=== PATIENT | male | born 1980 | race Two or more races ===

== ENCOUNTER 2024-08-10 15:14 | Outpatient (RCR) | payer MEDICAID, SELFPAY ==
--- NOTE | 2024-08-10 15:28 | PT.OIERPT ---
PT OP Initial Eval Patient Information Outpatient Physical Therapy Treatment Date: 08/10/24 Visit Reasons: LEFT SHOULDER PAIN Medical Diagnosis: M75.02 Treatment Dx #1: L shoulder pain Treatment Dx #2: Decreased L shoulder ROM Start of Care: 08/10/24 Date of Onset: 1 yr ago Smoking Status Smoking Status: Never smoker Initial Assessment Subjective: Pt is 44 yr old mongolian speaking male who reports L shoulder pain since reaching to not fall 1 yr ago. Increased pain with reaching up and it feels weak. He is limited with lifting heavy things, reaching up to the side, he is cautious with most other movements. 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 Pt requires skilled therapy in order to decrease pain and improve ROM and strength and has fair rehab potential. Short Term and Senior Care Goals 1. Ind with HEP ? 2. Improved AROM of L shoulder to at least 145 deg FF, 125 deg abduction and 90 deg ? ER ? 3. Improved HBB ROM to L3 ? 4. Pt will reach OH x10 with <=4/10 pain Treatment Plan ? 1. Manual therapy ? 2. Therex ? 3. Modalities as indicated, moist heat, ice, estim Frequency and Duration: 1-2x a week for 12 visits Certification Dates: 08/10/24 to 11/09/24 Procedure Charges OP PT Eval Mod Complex 30 minutes: Yes
== END 2024-09-07 23:59 | disposition home or self-care (01) ==
LOC: CPTX 15:14
PROVIDERS: PCP Family Medicine; Referring Provider Family Medicine; Visit Provider Family Medicine
DX: M25.512 Pain in left shoulder (principal); M75.02 Adhesive capsulitis of left shoulder
CPT/HCPCS: 97162

== ENCOUNTER 2024-11-09 18:56 | Emergency (ER) | payer MEDICAID, SELFPAY ==
[2024-11-09 19:08] VITALS: BP 172/66; PULSE 74; RESP 20; TEMP 37.1; O2SAT 96
--- NOTE | 2024-11-09 19:44 | EDNOTE_ITS ---
Upper Extremity Injury RME/HPI General Chief Complaint: Skin/Abscess/Foreign Body Stated Complaint: LEFT FACIAL / NECK SWELLING Time Seen by Provider: 11/09/24 19:44 Source: patient Arrival date/time: 11/09/24 18:56 Mode of arrival: ambulatory Limitations: no limitations RME / HPI RME / HPI narrative: 44-year-old male presents to the ED with a complaint of eating shrimp and then developing facial swelling. Also complains of a little pain as he describes it to his neck. Denies difficulty breathing or shortness of breath. Onset (ago): hour(s) Other injuries: none Severity: moderate Severity scale (1-10): 5 Relieving factors: none Related Data Previous Rx's ?Medication ?Instructions ?Recorded baclofen 10 mg tablet 10 mg PO TID PRN muscle spas m #30 01/03/20 tabs tramadol 50 mg tablet 50 mg PO BID PRN pain #10 ta bs 01/05/20 albuterol sulfate 90 mcg/actuation 1 puff inhalation Q 6H PRN wheezing 08/07/20 aerosol inhaler #6.7 grams loratadine 5 mg-pseudoephedrine ER 1 tab PO Q12H PRN s inus symptoms 08/07/20 120 mg tablet,extended #20 tabs release,12hr (Claritin-D 12 Hour) Allergies Allergy/AdvReac Type Severity Reaction Status Date / Time No Known Allergies Allergy Verified 11/09/24 18:59 Review of Systems Constitutional Constitutional: Reports system reviewed and no additional complaints, except as documented Eyes Eyes: Reports system reviewed and no additional complaints, except as documented, Denies dry eyes, Denies exophthalmos and Reports floaters Cardiovascular Cardiovascular: Denies chest pain with activity and Denies claudication ED Exam Narrative Physical exam: Patient is in no apparent respiratory distress. The left side of his face is edematous when compared to the right. He is able to speak in full word sentences. His neck is midline and there is no apparent stridor. General Limitations: Present no limitations General appearance: Present alert and in no apparent distress Head Head exam: Present atraumatic Eye Eye exam: Present normal appearance and EOMI ENT ENT exam: Present normal exam and normal oropharynx Neck Neck exam: Present normal inspection, full ROM and trachea midline Chest Chest inspection: Present normal inspection and symmetric chest wall rise Respiratory Respiratory exam: Present normal lung sounds bilaterally Cardiovascular Cardiovascular exam: Present regular rate, normal rhythm and normal heart sounds Abdominal Exam Abdominal exam: Present soft and normal bowel sounds Extremities Exam Extremities exam: Present tenderness (Right hand laceration positive semicircular. No apparent tendon involvement.) Back Exam Back exam: Present normal inspection and full ROM Neurological Exam Neurological exam: Present alert and oriented X3 Psychiatric Psychiatric exam: Present normal affect and normal mood Skin Skin exam: Present warm, dry, intact and normal color Course Course Course Narrative: Patient will have Solu-Medrol as well as Benadryl 50 mg. He will be observed and then discharge in no apparent distress. Quality Measures none Orders Category Date Time Status DiphenhydrAMINE INJ [Benadryl Inj] Med 11/09/24 20:38 Discontinued 50 mg IM X1 ONE HYDROcodone/APAP 10/325 [[place]edom 10/325] Med 11/09/24 19:52 Discontinued 1 tab PO X1 ONE Lidocaine 1% 20 ml [Xylocaine 1% 20 ML] Med 11/09/24 19:49 Discontinued 20 ml INFL X1 ONE MethylPREDNISolone.* [SoluMEDROL Inj] Med 11/09/24 20:38 Discontinued 125 mg IM X1 ONE TET,DIP/PERT AC (Adult)-Tdap [Boostrix Adult (Tdap) Med 11/09/24 19:49 Discontinued Vacc] 0.5 ml IMI .ONCE ONE Vital Signs Vital signs: Vital Signs Temperature 98.7 F 11/09/24 19:08 Pulse Rate 74 11/09/24 19:08 Respiratory Rate 20 11/09/24 19:08 Blood Pressure 172/66 H 11/09/24 19:08 Pulse Oximetry (%) 96 11/09/24 19:08 Oxygen Delivery Method Room Air 11/09/24 19:08 Pulse ox room air 96% Extremity Injury MDM Narrative MDM Narrative:: Patient will have 125 mg of Solu-Medrol as well as 50 mg of Benadryl both IM. He will be observed for half hour and then discharged to home. Patient data External records reviewed:: Other (specify) Clinical information provided by:: none Social determinants that could affect healthcare access:: none Patient has the following chronic illnesses:: Denies chronic illness How is presenting disease/condition affected by chronic disease/condition?: caused by (Shrimp) Evaluation data The following diagnostics were reviewed and interpreted by me:: lab results (No labs and no radiology ordered) Lab and/or radiology exams considered but not ordered:: Labs were Dorp where there any x-rays required Interpretation Summary: There are no labs and there is no radiology ordered Medications / Prescriptions Medications or Prescriptions considered but not ordered:: N/A Medication administrations:: Medication Administration History Discontinued Medications Hydrocodone Bitart/Acetaminophen (Hydrocodone/Apap 10/325 Tab) 1 tab PO X1 ONE Stop: 11/09/24 19:53 Last Admin: 11/09/24 20:29 Dose: Not Given Documented By: MOISES Non-Admin Reason: Discontinued Diphenhydramine HCl (Diphenhydramine Inj 50 Mg/Ml Vial) 50 mg IM X1 ONE Stop: 11/09/24 20:39 Last Admin: 11/09/24 20:51 Dose: 50 mg Documented By: MOIZ Diphtheria/Tetanus/Acell Pertussis (Diphth,Pertuss(Acell),Tet Vac 0.5 Ml Syr- Adult) 0.5 ml IMi .ONCE ONE Stop: 11/09/24 19:50 Last Admin: 11/09/24 20:29 Dose: Not Given Documented By: MOISES Non-Admin Reason: Not Given Lidocaine HCl (Lidocaine Hcl 1% 20 Ml Vial) 20 ml INFL X1 ONE Stop: 11/09/24 19:50 Last Admin: 11/09/24 20:28 Dose: Not Given Documented By: OMISES Non-Admin Reason: Cancelled by Provider Methylprednisolone Sodium Succinate (Methylprednisolone Sod Succ 62.5 Mg/Ml 2ml Vial) 125 mg IM X1 ONE Stop: 11/09/24 20:39 Last Admin: 11/09/24 20:51 Dose: 125 mg Documented By: MOIZ Done and received Consultations Consultation(s) initiated? (list below): No Diagnosis Upper Extremity Injury Differential Diagnosis: other (Anaphylactic reaction versus allergic reaction) Most likely diagnosis given after review of the tests above:: No labs and no radiology ordered Admission Indicated Admission indicated?: not indicated Admission Request Was there a request for admission?: No Disposition Plan Disposition Plan: Discharge Discharge Attestation Discharge Attestation: The patient and all family members were given an opportunity to ask questions and understood the discharge instructions. Discharge instructions specifically effects, indications for sooner follow up or return to the emergency department, and the expected course of current diagnosis. Patient condition: Stable Discharge Plan Plan Patient Disposition: HOME (Self Care) Discharge Disposition comment: Patient will be discharged in no apparent distress. Patient tells me he feels better and he feels drowsy. Patient will follow-up with primary care physician in 1 week. Patient will show caution when consuming shrimp and other fish foods. If worse or not better then the patient is to return. Patient condition on transfer: Stable Prescriptions/Referrals Prescriptions/Med Rec: No Action Claritin-D 12 Hour 5-120 mg tablet extended release 12 hr 1 tab PO Q12H PRN (Reason: sinus symptoms) Qty: 20 0RF albuterol sulfate 90 mcg/actuation HFA aerosol inhaler 1 puff inhalation Q6H PRN (Reason: wheezing ) Qty: 6.7 0RF baclofen 10 mg tablet 10 mg PO TID PRN (Reason: muscle spasm) Qty: 30 0RF tramadol 50 mg tablet 50 mg PO BID PRN (Reason: pain) Qty: 10 0RF Referrals: No Primary/Family,Physician [Primary Care Provider] - In 1 week Problem List Clinical Impression: Allergic reaction Patient/Caregiver Discharge Instructions Print Language: Lao Stand Alone Forms: Nery Award Info., Patient Portal Info Letter PA/[employer] Supervising Physician PA/[employer] Supervising Physician: Nixon
--- NOTE | 2024-11-09 20:20 | PC.NURSE ---
no answer x 1 at 2018. checked outside and lobby.
[2024-11-09] MEDS: MethylPREDNISolone SOD SUCC 62.5 MG/ML 2ML VIAL 125 MG IM (20:51)
[2024-11-09] MEDS: DiphenhydrAMINE INJ 50 MG/ML VIAL IM (20:51)
== END 2024-11-09 21:34 | disposition home or self-care (01) ==
PROVIDERS: Emergency Provider Emergency Medicine
DX: T78.40XA Allergy, unspecified, initial encounter (principal); R22.0 Localized swelling, mass and lump, head
CPT/HCPCS: 96372; 99283; J1200; J2919